=== PATIENT | male | born 1980 | race Caucasian/White ===

== ENCOUNTER 2018-08-27 19:28 | Emergency (ER) | payer OTHER ==
[~2018-08-27] VITALS: Ht 180.3 cm; Wt 88.5 kg
[2018-08-27 19:33] VITALS: BP 149/91
--- NOTE | 2018-08-27 19:39 | NUR ---
PT WHEELCHAIRED TO BED 5
--- NOTE | 2018-08-27 19:46 | NUR ---
X-RAY AT BEDSIDE.
--- NOTE | 2018-08-27 19:47 | NUR ---
Evan gonzales in [facility] - 08/27/18 at 1947 by STEPHENIE ELLEN AT BEDSIDE
--- NOTE | 2018-08-27 20:24 | NUR ---
PT BIB C/O RIGHT ANKLE PAIN. 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 DENIES LOC, N/V/D, SOB OR CP. --DORSALIS PEDIS AND POPITEAL PULSES EQUAL AND STRONG BL. +SWELLING NOTED. NO REDNESS OR DEFORMITY NOTED. PT UNABLE FLEX RIGHT FOOT. PT FOOT WARM TO TOUCH, COLOR NORMAL FOR RACE. PT ACTING APPROPRIATLY. PT IN BED; BED IN LOWER LOCKED POSITION; BED RAILS UP X1. PMH: DENIES RX: DENIES
--- NOTE | 2018-08-27 21:00 | NUR ---
Andrew bandage applied to right ankle. Pedial pulses wnl. No redness or swelling noted around dressing; + movement phalanges. Education of crutch use, patient returned demo; allowed for addition questions; pt veriblized understanding.
--- NOTE | 2018-08-27 21:17 | NUR ---
Patient discharged with v/s stable. Written and verbal after care instructions given and explained. Patient states 3/10 pain at this time. Patient alert, oriented and verbalized understanding of instructions. Ambulatory with steady gait using crutches. All questions addressed prior to discharge. ID band removed. Patient advised to follow up with PMD. Rx of Motrin given. Patient educated on indication of medication including possible reaction and side effects. Opportunity to ask questions provided and answered.
[2018-08-27 21:20] VITALS: BP 138/87
== END 2018-08-27 21:17 | disposition home or self-care (01) ==
LOC: MED 19:28
DX: S93.401A Sprain of unspecified ligament of right ankle, initial encounter (principal); W18.31XA Fall on same level due to stepping on an object, initial encounter; Y93.01 Activity, walking, marching and hiking; Y92.89 Other specified places as the place of occurrence of the external cause; Y99.8 Other external cause status
CPT/HCPCS: 73610; 99283; Q0092